=== PATIENT | female | born 1970 | race Caucasian/White ===

== ENCOUNTER 2022-06-17 17:05 | Emergency (ER) | payer OTHER ==
[~2022-06-17] VITALS: Ht 152.4 cm; Wt 63.6 kg
[2022-06-17] MEDS ORDERED: CAPT12.55 PO (17:23)
[2022-06-17] MEDS ORDERED: PARO-38 PO (17:23)
[2022-06-17] MEDS ORDERED: RIVA2.5T3 PO (17:23)
[2022-06-17] MEDS ORDERED: METO25 PO (17:23)
[2022-06-17] MEDS ORDERED: ASPI-1450 PO (17:23)
[2022-06-17] MEDS ORDERED: FLUT16H NASAL (17:31)
[2022-06-17] MEDS ORDERED: FAMO20 PO (17:31)
[2022-06-17] MEDS ORDERED: CAPT25TA3 PO (17:31)
[2022-06-17] MEDS ORDERED: ASPI-1522 PO (17:31)
[2022-06-17] MEDS ORDERED: FLUT110H IH (17:31)
[2022-06-17] MEDS ORDERED: FERR325T23 PO (17:31)
[2022-06-17] MEDS ORDERED: ATOR40TA71 PO (17:31)
[2022-06-17] MEDS ORDERED: ISOS30TA92 PO (17:31)
[2022-06-17] MEDS ORDERED: ALBU8HFA IH (17:31)
[2022-06-17 17:41] LABS: BASOPHILS % (AUTO) 0.8 % (0.0-2.0); EOSINOPHILS % (AUTO) 3.3 % (1.0-6.0); HEMOGLOBIN 12.5 g/dL (12.0-16.0); LYMPHOCYTES % (AUTO) 29.1 % (22.0-44.0); MEAN CORPUSCULAR HEMOGLOBIN 29.7 pg (26.0-34.0); MEAN CORPUSCULAR VOLUME 90 fL (80-100); MONOCYTES # (AUTO) 0.6 K/uL (0.1-1.0); NEUTROPHILS # (AUTO) 4.1 K/uL (1.8-7.7); NEUTROPHILS % (AUTO) 58.8 % (40.0-70.0); PLATELET COUNT (AUTO) 364 K/uL (150-450); RED BLOOD CELL COUNT(AUTO) 4.22 MIL/uL (4.00-5.20); RED CELL DISTRIBUTION WIDTH 13.4 % (11.5-14.5)
[2022-06-17 17:51] LABS: ANION GAP 6 mmol/L (8-16); CALCIUM, TOTAL 9.5 mg/dL (8.8-10.5); CARBON DIOXIDE 27 mmol/L (22-29); CHLORIDE 105 mmol/L (98-107); CREATININE 0.68 mg/dL (0.60-1.30); GLOMERULAR FILTR. RATE CALC > 60 mL/min (>60); GLUCOSE,RANDOM 92 mg/dL (70-110); POTASSIUM 4.1 mmol/L (3.5-5.1); SODIUM SERUM 138 mmol/L (136-145); UREA NITROGEN, BLOOD 10 mg/dL (7-18)
[2022-06-17 17:57] LABS: ALANINE AMINOTRANSFERASE 87 U/L (12-78); ALBUMIN 3.8 g/dL (3.4-5.0); ALKALINE PHOSPHATASE 215 U/L (46-116); ASPARTATE AMINOTRANSFERASE 55 U/L (15-37); BILIRUBIN,TOTAL 0.4 mg/dL (0.1-1.0); TOTAL PROTEIN, SERUM 8.2 g/dL (6.4-8.2)
[2022-06-17 17:58] LABS: B-TYPE NATRIURETIC PEPTIDE 13 pg/mL (0-100)
[2022-06-17 23:01] VITALS: BP 132/70
== END 2022-06-17 23:03 | disposition home or self-care (01) ==
LOC: EMS 17:11
DX: F41.9 Anxiety disorder, unspecified (principal); E78.00 Pure hypercholesterolemia, unspecified; I10 Essential (primary) hypertension
CPT/HCPCS: 71045; 80053; 83880; 84484; 85025; 93005; 99285; 36415-L1; 36415-TC